=== PATIENT | male | born 1975 | race African-American/Black ===

== ENCOUNTER 2017-02-14 10:13 | Outpatient (CLI) | payer OTHER ==
[2017-02-14 10:37] LABS: BASOPHILS % 0.5 (0.0-1.5); EOSINOPHILS % 2.1 % (0.0-6.8); MEAN CORPUSCULAR HEMOGLOBIN 23.9 pg (28.0-34.0); MONOCYTES % 5.2 % (0.0-11.0); NEUTROPHILS # 3.8 # k/uL (1.4-7.7); eGFR (African) > 60; eGFR (Non-African) > 60
== END 2017-02-14 10:14 ==
LOC: LAB 10:13
PROVIDERS: ATTEND General Practice
DX: Z13.1 Encounter for screening for diabetes mellitus (principal)
CPT/HCPCS: 80053; 85025